=== PATIENT | male | born 1975 ===

== ENCOUNTER → 2024-02-15 09:02 | Outpatient (REF) | payer OTHER, SELFPAY ==
--- NOTE | 2024-02-16 15:26 | EEG.RPT ---
Electroencephalogram Report
Recording
Date of EE02/16/24
Type of EEG: Ambulatory
Length of EEG recordin hous 42 minutes
Done with Video Recording: No
Patient Status: Outpatient
Recording Conditions: Awake and Drowsy
Hyperventilation Performed: Yes
Photic Stimulation Performed: Yes
Report
24 HOUR EEG REPORT
24 HOUR EEG INTERPRETATION:
Abnormal EEG for age in wakefulness through sleep due to frequent 5-second generalized beta activity in wakefulness through drowsiness.
CLINICAL CORRELATION:
This study was suggestive of a generalizing abnormality not clearly associated with a seizure disorder. The patient�s logs did not indicate clinical symptoms. Prolonged EEG recording for greater than 24 hours may be warranted.
Clinical correlation is advised.
METHODS:
A 21 channel digitized electroencephalogram (EEG) was initiated in the [facility]. The patient then wore the device outside of the lab and returned after 24 hours for EEG lead and recorder removal. The 10/20 international
system of electrode placement was used. ECG was monitored. The [employer] quantitative analysis system was utilized.
ELECTROENCEPHALOGRAPHER IMPRESSION(S):
Quality
Good
Background
In maximal wakefulness there was an alpha background.
There was a normal anterior-posterior voltage gradient.
There were no significant asymmetries of background activity noted.
Photic stimulation
Failed to produce activation the record
Hyperventilation
Failed to produce activation of the record
Sleep
Drowsiness was suggested by slowing of the background rhythms
Abnormal findings:
Generalizing medium amplitude beta activity seen frequently during the study. Discharges typically were 5 seconds in duration during wakefulness.
ECG:
Normal sinus rhythm
== END ==
LOC: EEG 09:02
PROVIDERS: ATTENDING PHYSICIAN Psychiatry & Neurology Neurology; FAMILY PHYSICIAN Internal Medicine
DX: R56.9 Unspecified convulsions (principal)
CPT/HCPCS: 95708

== ENCOUNTER → 2025-01-16 09:25 | Outpatient (REF) | payer OTHER, SELFPAY ==
--- NOTE | 2025-01-17 16:28 | EEG.RPT ---
Electroencephalogram Report
Recording
Date of EE01/16/25
Type of EEG: Ambulatory
Length of EEG recordin DAY 14 MINUTES
Done with Video Recording: Yes
Patient Status: Outpatient
Recording Conditions: Awake, Drowsy and Asleep
Hyperventilation Performed: Yes
Photic Stimulation Performed: Yes
Report
24 HOUR AMBULATORY EEG SUMMARY
24 HOUR AMBULATORY EEG CONCLUSION(S):
Unremarkable EEG for age
CLINICAL CORRELATION:
A normal EEG may not rule out a diagnosis of epilepsy.
The patient�s logs did not indicate clinical symptoms.
Consideration for multiple day monitoring may be given.
Clinical correlation is advised.
METHODS:
A 21 channel digitized electroencephalogram (EEG) was initiated in the [facility]. The patient wore the device outside of the laboratory and returned after 24 hours for electrode and recorder removal. The 10/20
international system of electrode placement was used with bipolar electrode montage recorded. ECG was monitored. The [employer] quantitative EEG analysis system was utilized.
IMPRESSION(S):
Quality
Fair becoming poor by end of study
Background
Maximal wakefulness: alpha
There was a normal anterior-posterior voltage gradient. With eye opening the background activity changed. No significant asymmetries of background activity noted.
Sleep
Drowsiness was suggested by slowing of the background rhythms
Stage I sleep was recorded
Stage 2 sleep was recorded
ECG
Unremarkable
== END ==
LOC: EEG 09:25
PROVIDERS: ATTENDING PHYSICIAN Nurse Practitioner Adult Health
DX: R56.9 Unspecified convulsions (principal)
CPT/HCPCS: 95708

== ENCOUNTER 2025-06-14 13:59 | Emergency (ER) | payer OTHER, SELFPAY ==
[2025-06-14 14:22] VITALS: BP 155/100
[2025-06-14 17:07] VITALS: BMI 31.3
[2025-06-14 17:18] VITALS: BP 166/104
--- NOTE | 2025-06-14 17:52 | ED.SKININJ ---
HPI-Injury
General
Chief Complaint: Skin Surface Trauma
Source: patient
Exam Limitations: none
Time Seen by Provider: 06/14/25 17:20
History of Present Illness-Injury
Initial Injury comments:
50 year old male presents with laceration to right palm he sustained today. He was using a screwdriver and slipped and stabbed himself with a screwdriver in his right palm. He is on Xarelto. Last tetanus unknown. NO loss of function or numbness.
No other complaints.
Phy Exam
Physical Exam
Physical Exam:
General: Well-appearing male no acute distress
Skin: 1 cm laceration right thenar eminence mild bleeding without tendon or nerve involvement full range of motion right thumb. Good sensation all fingers and right thumb
Course
Orders/Labs/Results
Orders:
Orders
06/14/25 17:50
Tetanus/Diphth/Acelpertussis [Adacel] 0.5 ml IM .ONCE ONE
Vital Signs
Initial and Last Documented VS:
Initial Vital Signs
Temp Pulse Resp BP Pulse Ox
98.3 F 62 18 155/100 96
06/14/25 14:22 06/14/25 14:22 06/14/25 14:22 06/14/25 14:22 06/14/25 14:22
Last Documented Vital Signs
Temp Pulse Resp BP Pulse Ox
98.3 F 54 16 166/104 99
06/14/25 14:22 06/14/25 17:18 06/14/25 17:18 06/14/25 17:18 06/14/25 17:18
MDM/Problems Addressed
Differential Diagnosis Includes:
Laceration right palm. No evidence of nerve or tendon involvement. Wound was irrigated with saline and anesthetized with 1% lidocaine with epinephrine and closed in a simple erupted fashion using 5-0 Prolene sutures. 4 sutures were required to do
so. The tetanus vaccine was updated dressing was applied he was stable to
*Pulse Oximetry
SaO2: 99
Oxygen Mode of Delivery: Room air
Patient hypoxic: no
*Critical Care Note
Total Time (30-74mins, 75-104mins- exclusive of procedures): Not Applicable
ED Attending Note
-
Portions of this chart may have been created with voice recognition software.� Occasional wrong word or��sound alike� substitutions may have occurred due to the inherent limitations of voice recognition software.
Discharge Plan
Departure
Patient Disposition: Home (Routine Discharge)
Date of Disposition: 06/14/25
Time of Disposition: 17:55
Patient with high blood pressure during this ER visit?: No
Discharge Problem:
Laceration
Instructions: Laceration Repair With Stitches (DC)
Referrals:
Jeffers,Tin, DO [Family Provider]
Activity Restrictions/Additional Instructions:
Keep clean. Have sutures removed in 12 to 14 days.
Interventions
Interventions:
*Risk Screen - Suicide Last Done: 06/14/25 14:28
*General Assessment Last Done: 06/14/25 17:07
*Neglect/Abuse Screening Last Done: 06/14/25 14:28
*ED- Fall Risk Assessment Last Done: 06/14/25 17:07
*ED COVID-19 Vaccine History Last Done: 06/14/25 17:07
ED-Skin Assessment Last Done: 06/14/25 17:07
Discharge Date and Time
Print Language: ARMENIAN
[2025-06-14] MEDS: ADACEL 0.5 ML IM (18:10)
--- NOTE | 2025-06-14 18:20 | EDRN ---
Reviewed discharge instructions with patient. Verbalized understanding. Ambulated with steady gait to the lobby.
[2025-06-14 18:21] VITALS: BP 190/107
== END 2025-06-14 18:22 | disposition home or self-care (01) ==
LOC: EMR 13:59
PROVIDERS: EMERGENCY PHYSICIAN Emergency Medicine; FAMILY PHYSICIAN Student in an Organized Health Care Education/Training Program
DX: S61.411A Laceration without foreign body of right hand, initial encounter (principal); W27.0XXA Contact with workbench tool, initial encounter; Z23 Encounter for immunization
CPT/HCPCS: 99282; 12001; 90471; 90715